=== PATIENT | male | born 1955 | race Caucasian/White ===

== ENCOUNTER 2018-03-12 09:28 | Outpatient (CLI) | payer BC ==
--- NOTE | 2018-03-12 10:41 | RAD ---
RIGHT FOOT THREE VIEWS: Date: 03-12-18 Comparison: None. History: Nonhealing wound on the plantar lateral aspect of the foot. FINDINGS: There is marked enthesophyte formation at the insertion of the Achilles tendon and origin of the plan tar aponeurosis. There are post-operative screws associated with the calcaneus posteriorly. There is midfoot degenerative change with joint space narrowing and dorsal osteophyte formation. There is no d isplaced fracture or evidence of dislocation seen. There is focal soft tissue swelling lateral and pl nicola to the fifth metatarsal phalangeal joint. No associated radiopaque foreign body or subcutaneous gas. There are degenerative changes involving the first metatarsal phalangeal joint as well as the first i nterphalangeal joint and the second and third distal interphalangeal joints. No acute fracture or dis location is seen. IMPRESSION: 1. Focal soft tissue swelling laterally. 2. Multilevel degenerative change. POS: [facility]
== END 2018-03-12 09:29 | disposition home or self-care (01) ==
LOC: SCSRAD 09:28
PROVIDERS: ATTEND Family Medicine
DX: M79.671 Pain in right foot (principal); M79.89 Other specified soft tissue disorders; M19.071 Primary osteoarthritis, right ankle and foot

== ENCOUNTER 2018-08-01 11:34 | Inpatient (IN) | payer BC ==
[2018-08-01 13:23] LABS: Hemoglobin 14.4 g/dL (14.0-18.0); Mean Corpuscular HGB CONC 33.5 g/dL (32.0-36.0); Mean Corpuscular Hemoglobin 30.6 pg (27.0-31.0); Mean Corpuscular Volume 91.3 fL (78.0-98.0); Mean Platelet Volume 8.4 fL (7.4-10.4); Platelet Count 166 thou/uL (130-400); RBC Distribution Width 12.2 % (11.5-14.5); White Blood Cell (WBC) Count 21.7 thou/uL (4.8-10.8)
[2018-08-01 13:42] LABS: Band 10 % (5-11); Lymphocytes 3 % (21-51); MDiff Complete? YES; Monocytes 3 % (0-10); Neutrophil 84 % (42-75); Platelet Morphology Comment Appears Adequate
--- NOTE | 2018-08-01 13:59 | RAD ---
Right foot 3 views HISTORY: Right foot pain with infection. COMPARISON: 03/12/2018. FINDINGS: Lisfranc joint alignment is anatomic. Plantar arch is maintained. Osteophytosis throughout the foot. Metallic anchors at the Achilles insertion. Soft tissue swelling the fifth metatarsophalangeal joint, slightly more pronounced than on the prior exam. Small gas pocket within the lateral soft tissue swelling. On the AP view, a thin linear calcific density projects just lateral to the fifth metatarsal head. It is not apparent on the other views and may represent artifact. IMPRESSION: Soft tissue swelling with gas over the fifth metatarsophalangeal joint. No aggressive oss eous destruction.
[2018-08-01 14:16] LABS: ALT (SGPT) 26 U/L (8-55); AST (SGOT) 17 U/L (5-34); Albumin 4.1 g/dL (3.4-4.8); Alkaline Phosphatase 95 U/L (40-150); Anion Gap 15 mmol/L (10-20); BUN (Urea Nitrogen) 22 mg/dL (8.4-25.7); Bilirubin, Total 0.8 mg/dL (0.2-1.2); Calc. Creatinine Clearance 0 mL/min (70-130); Carbon Dioxide 21 mmol/L (23-31); Chloride 103 mmol/L (98-107); Estimated GFR-MDRD 59; Globulin 2.6 g/dL (2.4-3.5); Glucose 176 mg/dL (80-115); Potassium 4.5 mmol/L (3.5-5.1); Protein, Total 6.7 g/dL (5.8-8.1); Sodium 134 mmol/L (136-145)
[2018-08-01] MEDS ORDERED: Piperacillin/Tazobactam 4.5 GM VIAL ONE (14:34)
[2018-08-01] MEDS ORDERED: Acetaminophen 325 MG TAB ONE ×2 (16:43→16:44)
[2018-08-01] MEDS ORDERED: metFORMIN 500 MG TAB PO SCH (17:00)
[2018-08-01] MEDS ORDERED: Ondansetron PF 4 MG/2 ML Vial IVP PRN (17:10)
[2018-08-01] MEDS ORDERED: Ondansetron ODT 4 MG TAB SL PRN (17:10)
[2018-08-01] MEDS ORDERED: Morphine 2 MG/ML SYRINGE SLOW IVP PRN (17:10)
[2018-08-01] MEDS ORDERED: Sodium Chloride 0.9% 1,000 ML IV SCH (17:10)
[2018-08-01] MEDS ORDERED: Morphine 4 MG/ML VIAL SLOW IVP PRN (17:11)
[2018-08-01] MEDS ORDERED: Acetaminophen 325 MG TAB PO PRN (17:22)
[2018-08-01] MEDS ORDERED: Dextrose 5% in Water 1,000 ML IV PRN (17:22)
[2018-08-01] MEDS ORDERED: Dextrose 50% Abboject 50 ML SYRINGE SLOW IVP PRN (17:22)
[2018-08-01] MEDS ORDERED: Ondansetron ODT 4 MG TAB PO PRN (17:22)
[2018-08-01] MEDS ORDERED: Calcium Carbonate 500 MG ChewTAB PO PRN (17:22)
[2018-08-01 17:26] VITALS: BMI 36.2
[2018-08-01] MEDS: Piperacillin/Tazobactam 3.375 GM in Sodium Chloride 0.9% 100 ML IVPB SCH (20:12)
[2018-08-01] MEDS ORDERED: Piperacillin/Tazobactam 4.5 GM in Sodium Chloride 0.9% 100 ML IVPB SCH (21:00)
[2018-08-01] MEDS: Vancomycin HCl 1 GM in Premix Bag 1 BAG IVPB SCH (22:11)
--- NOTE | 2018-08-01 22:38 | HP ---
RESIDENT PHYSICIAN: Dr. Mono Burns. PRIMARY CARE PHYSICIAN: Rojelio Forrest MD. HISTORY OF PRESENT ILLNESS: The patient is a 62-year-old male with past medical historyof type 2 diabetes mellitus, chronic pain, hypertension, hyperlipidemia, and diabetic peripheral neuropathy, who presents from his outside provider's clinic for further evaluation regarding a diabetic foot wound. Per the patient and his approximately 3 months ago, they noticed a diabetic foot ulcer, which was being treated outpatient. He had 2 episodes previously of cellulitis over the span of 3 months for which he was treated with both Bactrim and Keflex in the outpatient setting. Additionally, he was given wound care supplies including an antimicrobial ointment for which there has been no resolution of this ulcer. Initially, he had x-rays done 3 months prior, which were negative for any evidence of osteomyelitis. The patient reports the last night he began becoming confused and spiked a fever for which he took Tylenol for. He presented to his primary care provider's clinic today and was noted to have a fever of 101 there at which point he was sent to [facility] for further evaluation. On presentation to the ER, he had a CBC and a CMP performed. [place] [address] with 84% neutrophils. His CMP was unremarkable except for an elevated glucose of 176 and sodium of 134. He had x- ray of the right foot, which showed some gas formation over the 5th MTP of the right foot in addition to some soft tissue swelling. PAST MEDICAL HISTORY: 1. Diabetes mellitus. 2. Chronic pain. 3. Peripheral neuropathy. 4. Hypertension. 5. Hyperlipidemia. PAST SURGICAL HISTORY: Bilateral hip replacements. SOCIAL HISTORY: The patient denies alcohol, tobacco, and drug use. FAMILY HISTORY: Noncontributory. REVIEW OF SYSTEMS: GENERAL: The patient reports fever and chills. HEENT: The patient denies sore throat, cough, congestion. CARDIOVASCULAR: The patient denies chest pain, palpitations, or worsening edema. RESPIRATORY: The patient denies chest pain, shortness of breath, cough. ABDOMEN: The patient denies nausea, vomiting, diarrhea, constipation, abdominal pain. NEUROLOGIC: The patient denies dizziness, weakness, lightheadedness. MUSCULOSKELETAL: The patient does report joint pain, which is chronic. EXTREMITIES: The patient reports new onset erythema and warmth of the right lower extremity and a 3 month history of a diabetic foot ulcer. PHYSICAL EXAMINATION: VITAL SIGNS: On arrival into the ED showed a blood pressure of 116/69, pulse rate of 63, respiratory rate of 16, and temperature of 99. The patient's temperature in the outside clinic was reported of 101.5. PERTINENT LABORATORY RESULTS: The patient had a white blood cell count of 21, 700. Lactic acid 1.2, 84% neutrophils and lactic acid 1.2. PHYSICAL EXAMINATION: GENERAL: The patient in no acute distress, sitting comfortably in bed. HEENT: Head is normocephalic, atraumatic. Trachea is midline. No JVD. Pupils are equal, round, reactive to light and accommodation. Extraocular muscles are intact. CARDIOVASCULAR: Heart is regular rate and rhythm. No murmurs, rubs or gallops. RESPIRATORY: Lungs are clear to auscultation bilaterally. No wheezing, rales, or rhonchi. ABDOMEN: Soft, nontender, nondistended. Bowel sounds normoactive x4 quadrants. EXTREMITIES: No clubbing, cyanosis, or edema. The right lower extremity is erythematous up to approximately 10 cm below the patella on the right side. Additionally, there is an approximately 1 cm diabetic foot ulcer present over the 5th MTP joint without any evidence of fluctuance or purulent drainage. Pulses are 2+ posterior tibial and dorsalis pedis bilateral. NEUROLOGIC: The patient has no focal deficits. ASSESSMENT/PLAN: 1. Sepsis secondary to cellulitis. We will admit to medical floor for inpatient IV antibiotic therapy. Currently, we have an ESR, CRP, and procalcitonin pending. The patient will be started on broad-spectrum antibiotics including vancomycin and Zosyn. Given the foot x-ray showed gas formation over the 5th metatarsophalangeal. We will order an MRI with and without contrast of the right foot to rule out osteomyelitis. 2. Diabetic foot wound. See number one. Additionally, we will consult Wound Care for additional management. 3. Hypertension. Continue home medications. 4. Hyperlipidemia. Continue home medications. 5. Diabetes mellitus. The patient will be placed on a mild sliding scale insulin and restarted on his home metformin 1000 b.i.d. and Accu-Cheks before break fast and at bedtime. 6. Code status is full code. 7. Deep venous thrombosis, Lovenox. 8. Gastrointestinal prophylaxis, Tums p.r.n. DISPOSITION: The patient is currently stable. He will be admitted for inpatient IV antibiotics and we will workup osteomyelitis. Currently, MRI, ESR, CRP are still pending. Roel Burns MD Attending Note: Patient seen and examined along side resident. Labs, vitals, and imaging reviewed. Examine repeated by myself and agree with documentation above. Will admit patient for severe diabetic foot wound complicated by cellulitis and sepsis. Cultures pending. Continue empiric antibiotics. Inflammatory markers pending. MRI as needed. Consult surg and wound care. Follow closely. Lavinia Job ID: [id number] MTDD
[2018-08-02] MEDS: Piperacillin/Tazobactam 3.375 GM in Sodium Chloride 0.9% 100 ML IVPB SCH ×4 (02:46→20:50)
[2018-08-02] MEDS: Vancomycin HCl 1 GM in Premix Bag 1 BAG IVPB SCH ×3 (06:06→23:22)
[2018-08-02] MEDS: HumaLOG 300 UNITS/3 ML VIAL SC PRN ×2 (06:10→17:18)
[2018-08-02 07:23] LABS: Hemoglobin 12.9 g/dL (14.0-18.0); Mean Corpuscular HGB CONC 33.7 g/dL (32.0-36.0); Mean Corpuscular Hemoglobin 31.2 pg (27.0-31.0); Mean Corpuscular Volume 92.4 fL (78.0-98.0); Red Blood Cell (RBC) Count 4.15 mill/uL (4.70-6.10); White Blood Cell (WBC) Count 9.3 thou/uL (4.8-10.8)
[2018-08-02 07:30] LABS: Anion Gap 10 mmol/L (10-20); BUN (Urea Nitrogen) 16 mg/dL (8.4-25.7); Calc. Creatinine Clearance 121 mL/min (70-130); Calcium 8.7 mg/dL (7.8-10.44); Carbon Dioxide 23 mmol/L (23-31); Chloride 107 mmol/L (98-107); Estimated GFR-MDRD 71; Glucose 134 mg/dL (80-115); Potassium 4.2 mmol/L (3.5-5.1); Sodium 136 mmol/L (136-145)
[2018-08-02] MEDS: Amlodipine 10 MG TAB PO SCH ×2 (08:14→20:50)
[2018-08-02] MEDS: Potassium Chloride 20 MEQ TAB PO SCH (08:15)
[2018-08-02] MEDS: Gabapentin 300 MG CAP PO SCH ×2 (08:15→20:50)
[2018-08-02] MEDS: Alogliptin 25 MG TAB PO SCH (08:15)
[2018-08-02] MEDS: DULoxetine 60 MG CAP PO SCH (08:15)
[2018-08-02] MEDS: Furosemide 40 MG TAB PO SCH (08:16)
[2018-08-02] MEDS: metFORMIN 500 MG TAB PO SCH ×2 (08:16→17:17)
[2018-08-02] MEDS: Doxazosin Mesylate 4 MG TAB PO SCH (08:16)
[2018-08-02] MEDS: Enoxaparin Sodium 40 MG/0.4 ML SYRINGE SC SCH (08:16)
[2018-08-02] MEDS: Aspirin 325 MG TAB PO SCH (08:16)
[2018-08-02] MEDS: Niacin 500 MG TAB PO SCH (08:17)
[2018-08-02 08:36] LABS: #Lymphocytes 0.8 thou/uL (1.20-3.40); #Monocytes 0.6 thou/uL (0.11-0.59); #Neutrophils 7.7 thou/uL (1.40-6.50); %Basophils 0.2 % (0.0-1.0); %Eosinophils 0.4 % (0.0-10.0); %Lymphocytes 9.1 % (21.0-51.0); %Monocytes 6.9 % (0.0-10.0); %Neutrophils 83.4 % (42.0-75.0); Band 12 % (5-11); Lymphocytes 13 % (21-51); MDiff Complete? YES; Monocytes 5 % (0-10); Neutrophil 69 % (42-75); Platelet Count 118 thou/uL (130-400); Platelet Morphology Comment Appears Decreased; RBC Distribution Width 12.1 % (11.5-14.5); Reactive Lymphocytes 1 % (0-10)
[2018-08-02] MEDS ORDERED: DAPAGLIFLOZIN PROPANEDIOL 10 MG PO SCH (09:00)
--- NOTE | 2018-08-02 10:51 | PDOC.FM ---
- Subjective Subjective: CHIVO overnight. Pt reports he has not had fever recurrence does report episodes of sweating though. Overall feels improved. - Objective Vital Signs & Weight: Vital Signs (12 hours) Temp Pulse Resp BP Pulse Ox 08/02/18 08:14 62 08/02/18 08:00 98.3 F 52 L 16 154/77 H 100 Weight Weight 117.934 kg I&O: 08/01/18 08/02/18 08/03/18 06:59 06:59 06:59 Intake Total 1999 600 Balance 1999 600 Result Diagrams: 08/02/18 05:58 08/02/18 05:58 Phys Exam - Physical Examination Constitutional: NAD HEENT: PERRLA, sclera anicteric Neck: no nodes, no JVD Respiratory: no wheezing, no rales, no rhonchi, clear to auscultation bilateral Cardiovascular: RRR, no significant murmur, no rub Gastrointestinal: soft, non-tender, no distention, positive bowel sounds Musculoskeletal: no edema, pulses present 5th mtp DM ulcer rt, erythema improved from yesterday Neurological: non-focal, moves all 4 limbs Lymphatic: no nodes Deviation from normal: erythema rle, improved Dx/Plan (1) Sepsis due to cellulitis Code(s): L03.90 - CELLULITIS, UNSPECIFIED; A41.9 - SEPSIS, UNSPECIFIED ORGANISM Status: Acute (2) Osteomyelitis Code(s): M86.9 - OSTEOMYELITIS, UNSPECIFIED Status: Acute (3) DMII (diabetes mellitus, type 2) Status: Acute (4) HTN (hypertension) Code(s): I10 - ESSENTIAL (PRIMARY) HYPERTENSION Status: Acute (5) HLD (hyperlipidemia) Code(s): E78.5 - HYPERLIPIDEMIA, UNSPECIFIED Status: Acute (6) Foot ulcer due to secondary DM Code(s): E13.621 - OTHER SPECIFIED DIABETES MELLITUS WITH FOOT ULCER; L97.509 - NON-PRESSURE CHRONIC ULCER OTH PRT UNSP FOOT W UNSP SEVERITY Status: Acute - Plan Plan: 1) Sepsis: - cont broad spectrum abx - concern for osteo given XR findings - will get MRI today - sepsis has resolved (afebrile, WBC improved) 2) Cellulitis: - cont abx - improved from yesterday 3) Osteo: presumed given XR findings, will get MRI to confirm - gen surg consult pending XR results and cont broad spectrum ABX 4) DMII: home meds - mild SSI - accuchecks ACHS 5) HTN: Home meds 6) HLD: home meds 7) Chronic pain: home meds Dispo: Pt stable, to undergo MRI today for further evaluation of foot. Concern for osteo. Will consult gen surg. Cont broad spectrum abx. Addendum - Attending - Attending Attestation Date/Time: 08/02/18 7129 I personally evaluated the patient and discussed the management with Dr. Burns. I agree with the History, Examination, Assessment and Plan documented above with any addition or exceptions noted below.
[2018-08-02 14:13] LABS: Vancomycin, Trough 12.5 ug/mL
[2018-08-02] MEDS ORDERED: Lorazepam 2 MG/ML VIAL SLOW IVP SCH (15:00)
--- NOTE | 2018-08-02 18:58 | MRI ---
MRI OF THE RIGHT FOREFOOT WITH AND WITHOUT CONTRAST: 08/02/18 INDICATION: Unhealing wound underlying the fifth metatarsophalangeal joint with history of diabetes. TECHNIQUE: Multiplanar and multisequence MR images were obtained of the right forefoot with and without contrast utilizing 20 mL of gadolinium. Comparisons are made with radiographs of the right foot dated 08/01/18 and an additional comparison rad iograph of the right foot dated 03/12/18. FINDINGS: There is a surface marker placed underlying the fifth metatarsophalangeal joinr corresponding to the reported plantar base wound. There is a nonenhancing, heterogeneous fluid collection underlying the s kin surface of the plantar wound measuring 2.8 x 1.5 cm suspicious for a subcutaneous abscess. There are some erosive changes involving the dorsal medial and dorsal plantar aspect of the fifth metatars al head with enhancement suspicious for changes of osteomyelitis. No maikel joint effusion is seen to suggest the presence of septic arthritis of the fifth digit MTP joint. No additional marrow signal ab normality is grossly evident. There is scattered midfoot and forefoot osteoarthritic change. Lisfranc ligament is intact. There is mild cellulitis of the fifth digit as well as the dorsal lateral aspe ct of the forefoot. IMPRESSION: 1. Large plantar based ulceration underlying the fifth digit metatarsophalangeal joint with a higuera spected subcutaneous abscess overlying the ulceration and underlying the fifth digit MTP joint. There is scalloped margins involving the dorsomedial and dorsal plantar aspect of the fifth metatarsal wi th associated enhancement suspicious for changes of osteomyelitis. 2. Cellulitis of the right foot. POS: [facility]
[2018-08-02 22:27] LABS: Vancomycin, Trough 16.2 ug/mL
[2018-08-03] MEDS: Piperacillin/Tazobactam 3.375 GM in Sodium Chloride 0.9% 100 ML IVPB SCH ×4 (03:53→20:54)
[2018-08-03] MEDS: Vancomycin HCl 1 GM in Premix Bag 1 BAG IVPB SCH ×3 (06:30→22:20)
[2018-08-03 07:03] LABS: #Eosinphils 0.1 thou/uL (0.0-0.7); #Lymphocytes 1.4 thou/uL (1.20-3.40); #Monocytes 0.6 thou/uL (0.11-0.59); #Neutrophils 4.1 thou/uL (1.40-6.50); %Basophils 0.1 % (0.0-1.0); %Eosinophils 1.3 % (0.0-10.0); %Lymphocytes 23.1 % (21.0-51.0); %Monocytes 9.8 % (0.0-10.0); %Neutrophils 65.7 % (42.0-75.0); Hemoglobin 12.7 g/dL (14.0-18.0); Mean Corpuscular HGB CONC 34.5 g/dL (32.0-36.0); Mean Corpuscular Hemoglobin 31.4 pg (27.0-31.0); Mean Corpuscular Volume 91.1 fL (78.0-98.0); Mean Platelet Volume 7.9 fL (7.4-10.4); Platelet Count 128 thou/uL (130-400); RBC Distribution Width 11.7 % (11.5-14.5); Red Blood Cell (RBC) Count 4.05 mill/uL (4.70-6.10); White Blood Cell (WBC) Count 6.2 thou/uL (4.8-10.8)
[2018-08-03 07:14] LABS: Anion Gap 11 mmol/L (10-20); BUN (Urea Nitrogen) 11 mg/dL (8.4-25.7); Calc. Creatinine Clearance 137 mL/min (70-130); Calcium 8.8 mg/dL (7.8-10.44); Carbon Dioxide 24 mmol/L (23-31); Chloride 106 mmol/L (98-107); Estimated GFR-MDRD 82; Glucose 147 mg/dL (80-115); Potassium 3.9 mmol/L (3.5-5.1); Sodium 137 mmol/L (136-145)
--- NOTE | 2018-08-03 07:28 | PDOC.FM ---
- Subjective Subjective: CHIVO overnight. Pt denies fever, chills. Erythema improving. MRI confirms osteo. Discussed with pt. - Objective Vital Signs & Weight: Vital Signs (12 hours) Temp Pulse Resp BP Pulse Ox 08/02/18 20:50 62 08/02/18 20:00 98.6 F 62 20 150/77 H 100 Weight Admit Weight 117.934 kg Weight 117.934 kg I&O: 08/02/18 08/03/18 08/04/18 06:59 06:59 06:59 Intake Total 1999 1000 Balance 1999 1000 Result Diagrams: 08/03/18 06:19 08/03/18 06:19 Phys Exam - Physical Examination Constitutional: NAD HEENT: PERRLA, sclera anicteric Neck: no nodes, no JVD Respiratory: no wheezing, no rales, no rhonchi, clear to auscultation bilateral Cardiovascular: RRR, no significant murmur Gastrointestinal: soft, non-tender, no distention, positive bowel sounds Musculoskeletal: no edema, pulses present Neurological: non-focal, moves all 4 limbs Psychiatric: normal affect Deviation from normal: erythema RLE improved from yesterday, DM foot ulcer Rt 5th MTP Dx/Plan (1) Osteomyelitis Code(s): M86.9 - OSTEOMYELITIS, UNSPECIFIED Status: Acute (2) Sepsis due to cellulitis Code(s): L03.90 - CELLULITIS, UNSPECIFIED; A41.9 - SEPSIS, UNSPECIFIED ORGANISM Status: Resolved (3) DMII (diabetes mellitus, type 2) Status: Acute (4) HTN (hypertension) Code(s): I10 - ESSENTIAL (PRIMARY) HYPERTENSION Status: Acute (5) HLD (hyperlipidemia) Code(s): E78.5 - HYPERLIPIDEMIA, UNSPECIFIED Status: Acute (6) Foot ulcer due to secondary DM Code(s): E13.621 - OTHER SPECIFIED DIABETES MELLITUS WITH FOOT ULCER; L97.509 - NON-PRESSURE CHRONIC ULCER OTH PRT UNSP FOOT W UNSP SEVERITY Status: Acute - Plan Plan: 1) Sepsis resolved 2) Cellulitis improving - cont abx - improved from yesterday 3) Osteo: positive MRI - will consult Podiatry vs Gen surg and ID for recommendations 4) DMII: home meds - mild SSI - accuchecks ACHS 5) HTN: Home meds 6) HLD: home meds 7) Chronic pain: home meds Dispo: Pt stable, MRI confirms osteo. Will consult ID and Gen Surg for recommendations. Addendum - Attending - Attending Attestation Date/Time: 08/03/18 [id number] I personally evaluated the patient and discussed the management with Dr. Burns. I agree with the History, Examination, Assessment and Plan documented above with any addition or exceptions noted below. Patient reports improvement in pain. However, his MRI did show what appears to be osteomyelitis. Will consult Podiatry and/or GenSurg for further recs, possible I/D or debridement. Continue IV abx and pain control for now.
[2018-08-03] MEDS: metFORMIN 500 MG TAB PO SCH ×2 (08:21→17:15)
[2018-08-03] MEDS: Aspirin 325 MG TAB PO SCH (08:21)
[2018-08-03] MEDS: Doxazosin Mesylate 4 MG TAB PO SCH (08:21)
[2018-08-03] MEDS: Alogliptin 25 MG TAB PO SCH (08:21)
[2018-08-03] MEDS: Furosemide 40 MG TAB PO SCH (08:21)
[2018-08-03] MEDS: Niacin 500 MG TAB PO SCH (08:21)
[2018-08-03] MEDS: Gabapentin 300 MG CAP PO SCH ×2 (08:21→20:54)
[2018-08-03] MEDS: DULoxetine 60 MG CAP PO SCH (08:21)
[2018-08-03] MEDS: Potassium Chloride 20 MEQ TAB PO SCH (08:21)
[2018-08-03] MEDS: Amlodipine 10 MG TAB PO SCH ×2 (08:22→20:54)
[2018-08-03] MEDS: Enoxaparin Sodium 40 MG/0.4 ML SYRINGE SC SCH (08:33)
[2018-08-03] MEDS: HumaLOG 300 UNITS/3 ML VIAL SC PRN ×2 (13:00→17:20)
[2018-08-04] MEDS: Piperacillin/Tazobactam 3.375 GM in Sodium Chloride 0.9% 100 ML IVPB SCH ×4 (03:32→20:56)
[2018-08-04 04:27] LABS: #Eosinphils 0.2 thou/uL (0.0-0.7); #Lymphocytes 1.7 thou/uL (1.20-3.40); #Monocytes 0.6 thou/uL (0.11-0.59); #Neutrophils 3.8 thou/uL (1.40-6.50); %Basophils 0.1 % (0.0-1.0); %Eosinophils 2.9 % (0.0-10.0); %Lymphocytes 27.3 % (21.0-51.0); %Monocytes 8.9 % (0.0-10.0); %Neutrophils 60.8 % (42.0-75.0); Hemoglobin 13.1 g/dL (14.0-18.0); Mean Corpuscular HGB CONC 34.1 g/dL (32.0-36.0); Mean Corpuscular Hemoglobin 31.1 pg (27.0-31.0); Mean Corpuscular Volume 91.1 fL (78.0-98.0); Mean Platelet Volume 8.1 fL (7.4-10.4); Platelet Count 153 thou/uL (130-400); RBC Distribution Width 11.7 % (11.5-14.5); Red Blood Cell (RBC) Count 4.22 mill/uL (4.70-6.10); White Blood Cell (WBC) Count 6.2 thou/uL (4.8-10.8)
[2018-08-04 04:49] LABS: Anion Gap 11 mmol/L (10-20); BUN (Urea Nitrogen) 11 mg/dL (8.4-25.7); Calc. Creatinine Clearance 149 mL/min (70-130); Calcium 9.3 mg/dL (7.8-10.44); Carbon Dioxide 27 mmol/L (23-31); Chloride 105 mmol/L (98-107); Estimated GFR-MDRD 90; Glucose 129 mg/dL (80-115); Potassium 3.9 mmol/L (3.5-5.1); Sodium 139 mmol/L (136-145)
[2018-08-04] MEDS: Vancomycin HCl 1 GM in Premix Bag 1 BAG IVPB SCH ×3 (06:50→23:09)
--- NOTE | 2018-08-04 07:44 | PDOC.FM ---
- Subjective Subjective: CHIVO overnight. Pt reports he feels great. Will attempt to reach provider for debridement. - Objective Vital Signs & Weight: Vital Signs (12 hours) Temp Pulse Resp BP Pulse Ox 08/04/18 07:18 98.0 F 56 L 18 149/76 H 99 08/04/18 04:00 98.2 F 51 L 18 134/63 97 08/03/18 20:54 59 L 08/03/18 20:00 98.0 F 59 L 18 132/66 100 Weight Admit Weight 117.934 kg Weight 117.934 kg I&O: 08/03/18 08/04/18 08/05/18 06:59 06:59 06:59 Intake Total 1000 Balance 1000 Result Diagrams: 08/04/18 03:53 08/04/18 03:53 Phys Exam - Physical Examination Constitutional: NAD HEENT: PERRLA, sclera anicteric Neck: no nodes, no JVD Respiratory: no wheezing, no rales, no rhonchi, clear to auscultation bilateral Cardiovascular: RRR, no significant murmur, no rub Gastrointestinal: soft, non-tender, no distention, positive bowel sounds Musculoskeletal: no edema, pulses present DM foot ulcer rt 5th MTP Neurological: non-focal, moves all 4 limbs Deviation from normal: mild erythema over inner aspect LE that is local, otherwise improved Dx/Plan (1) Osteomyelitis Code(s): M86.9 - OSTEOMYELITIS, UNSPECIFIED Status: Acute (2) Sepsis due to cellulitis Code(s): L03.90 - CELLULITIS, UNSPECIFIED; A41.9 - SEPSIS, UNSPECIFIED ORGANISM Status: Resolved (3) DMII (diabetes mellitus, type 2) Status: Acute (4) HTN (hypertension) Code(s): I10 - ESSENTIAL (PRIMARY) HYPERTENSION Status: Acute (5) HLD (hyperlipidemia) Code(s): E78.5 - HYPERLIPIDEMIA, UNSPECIFIED Status: Acute (6) Foot ulcer due to secondary DM Code(s): E13.621 - OTHER SPECIFIED DIABETES MELLITUS WITH FOOT ULCER; L97.509 - NON-PRESSURE CHRONIC ULCER OTH PRT UNSP FOOT W UNSP SEVERITY Status: Acute - Plan Plan: 1) Sepsis resolved 2) Cellulitis improving - cont abx - improved from yesterday 3) Osteo: positive MRI - will consult Podiatry vs Gen surg and ID for recommendations - pt will need debirdement and will need recs for abx duration 4) DMII: home meds - mild SSI - accuchecks ACHS 5) HTN: Home meds 6) HLD: home meds 7) Chronic pain: home meds Dispo: Pt stable, MRI confirms osteo. Will attempt to reach provider for debridement and culture of underlying abscess. ID recs for abx and duration of therapy. Addendum - Attending - Attending Attestation Date/Time: 08/04/18 4469 I personally evaluated the patient and discussed the management with Dr. Burns. I agree with the History, Examination, Assessment and Plan documented above with any addition or exceptions noted below. Need to get Podiatry/Gen Surg on board for I/D versus debridement of likely osteomyelitis. Continue abx therapy. Pain improved and patient denies complaints.
[2018-08-04] MEDS: Aspirin 325 MG TAB PO SCH (09:10)
[2018-08-04] MEDS: Doxazosin Mesylate 4 MG TAB PO SCH (09:10)
[2018-08-04] MEDS: Enoxaparin Sodium 40 MG/0.4 ML SYRINGE SC SCH (09:10)
[2018-08-04] MEDS: metFORMIN 500 MG TAB PO SCH ×2 (09:10→18:39)
[2018-08-04] MEDS: Niacin 500 MG TAB PO SCH (09:11)
[2018-08-04] MEDS: Gabapentin 300 MG CAP PO SCH ×2 (09:11→20:56)
[2018-08-04] MEDS: DULoxetine 60 MG CAP PO SCH (09:12)
[2018-08-04] MEDS: Potassium Chloride 20 MEQ TAB PO SCH (09:12)
[2018-08-04] MEDS: Alogliptin 25 MG TAB PO SCH (09:12)
[2018-08-04] MEDS: Furosemide 40 MG TAB PO SCH (09:13)
[2018-08-04] MEDS: Amlodipine 10 MG TAB PO SCH ×2 (09:16→20:56)
[2018-08-04] MEDS: HumaLOG 300 UNITS/3 ML VIAL SC PRN ×2 (12:21→17:28)
[2018-08-04 22:33] LABS: Vancomycin, Trough 17.9 ug/mL
[2018-08-05] MEDS: Piperacillin/Tazobactam 3.375 GM in Sodium Chloride 0.9% 100 ML IVPB SCH ×4 (03:04→21:07)
[2018-08-05] MEDS: Vancomycin HCl 1 GM in Premix Bag 1 BAG IVPB SCH ×3 (06:12→23:25)
[2018-08-05] MEDS: HumaLOG 300 UNITS/3 ML VIAL SC PRN (06:16)
[2018-08-05] MEDS: Aspirin 325 MG TAB PO SCH (08:14)
[2018-08-05] MEDS: metFORMIN 500 MG TAB PO SCH ×2 (08:14→16:14)
[2018-08-05] MEDS: Potassium Chloride 20 MEQ TAB PO SCH (08:15)
[2018-08-05] MEDS: DULoxetine 60 MG CAP PO SCH (08:18)
[2018-08-05] MEDS: Niacin 500 MG TAB PO SCH (08:19)
[2018-08-05] MEDS: Gabapentin 300 MG CAP PO SCH ×2 (08:19→21:07)
[2018-08-05] MEDS: Amlodipine 10 MG TAB PO SCH ×2 (08:19→21:07)
[2018-08-05] MEDS: Alogliptin 25 MG TAB PO SCH (08:19)
[2018-08-05] MEDS: Furosemide 40 MG TAB PO SCH (08:19)
[2018-08-05] MEDS: Doxazosin Mesylate 4 MG TAB PO SCH (08:20)
--- NOTE | 2018-08-05 08:43 | PDOC.FM ---
- Subjective Subjective: CHIVO overnight. Pt reports he has been fever free and no chills. No pain in foot. Discussed plan for Gen surg consult today and continued abx. NPO for now. - Objective Vital Signs & Weight: Vital Signs (12 hours) Temp Pulse Resp BP BP Pulse Ox 08/05/18 08:19 157/75 H 08/05/18 08:00 98.1 F 51 L 18 157/75 H 99 08/04/18 20:56 59 L 136/68 Weight Admit Weight 117.934 kg Weight 117.934 kg I&O: 08/04/18 08/05/18 08/06/18 06:59 06:59 06:59 Intake Total 900 Balance 900 Result Diagrams: 08/04/18 03:53 08/04/18 03:53 Phys Exam - Physical Examination Constitutional: NAD HEENT: PERRLA, sclera anicteric Neck: no nodes, no JVD Respiratory: no wheezing, no rales, no rhonchi, clear to auscultation bilateral Cardiovascular: RRR, no significant murmur, no rub Gastrointestinal: soft, non-tender, no distention, positive bowel sounds Musculoskeletal: no edema, pulses present Rt 5th MTP ulcer, erythema improved RLE Neurological: non-focal, moves all 4 limbs Psychiatric: normal affect Skin: cap refill <2 seconds Deviation from normal: venous stasisi changes b/l LE Dx/Plan (1) Osteomyelitis Code(s): M86.9 - OSTEOMYELITIS, UNSPECIFIED Status: Acute (2) Sepsis due to cellulitis Code(s): L03.90 - CELLULITIS, UNSPECIFIED; A41.9 - SEPSIS, UNSPECIFIED ORGANISM Status: Resolved (3) DMII (diabetes mellitus, type 2) Status: Chronic (4) HTN (hypertension) Code(s): I10 - ESSENTIAL (PRIMARY) HYPERTENSION Status: Chronic (5) HLD (hyperlipidemia) Code(s): E78.5 - HYPERLIPIDEMIA, UNSPECIFIED Status: Chronic (6) Foot ulcer due to secondary DM Code(s): E13.621 - OTHER SPECIFIED DIABETES MELLITUS WITH FOOT ULCER; L97.509 - NON-PRESSURE CHRONIC ULCER OTH PRT UNSP FOOT W UNSP SEVERITY Status: Acute - Plan Plan: 1) Sepsis resolved 2) Cellulitis improving - cont abx - improved - Gen surg consult placed for foot ulcer and osteo 3) Osteo: - positive MRI - spoke with Dr Montague this am, will evaluate pt. - Cont abx for now 4) DMII: -home meds - mild SSI - accuchecks ACHS - Add low dose lantus QAM for better glycemic control 5) HTN: Home meds 6) HLD: home meds 7) Chronic pain: home meds Dispo: Pt stable, MRI confirms osteo. Spoke with Gen Surg this am, will await there recommendations and continue broad spectrum abx for now. Addendum - Attending - Attending Attestation Date/Time: 08/05/18 5030 I personally evaluated the patient and discussed the management with Dr. Burns. I agree with the History, Examination, Assessment and Plan documented above with any addition or exceptions noted below.
[2018-08-05] MEDS: Insulin Glargine 5 UNITS in Pre-Filled Syringe 1 EACH SC SCH (10:34)
[2018-08-05] MEDS ORDERED: Piperacillin/Tazobactam 3.375 GM VIAL ONE (15:29)
--- NOTE | 2018-08-06 01:43 | CON ---
DATE OF CONSULTATION: CHIEF COMPLAINT: Right foot osteomyelitis. HISTORY OF PRESENT ILLNESS: The patient is a very pleasant 62-year-old obese white male. He has a history of type 2 diabetes for the past 10 years. He has diabetic neuropathy associated with this. He tells me that about 3 months ago he believes he stepped on something while he was outside. He developed some cellulitis and/or infection involving his right foot for which he saw his primary care physician. He was placed on 2 separate courses of oral antibiotics. This seemed to have lead to some improvement. He notes that over the past 3 months that the area has healed with callus formation, but eventually it opened back up and drained again. He notes that last week (5 days ago) that he developed a fever to 101 with confusion. He went to the emergency room at [facility]. He was evaluated in the emergency room and noted to have a significant leukocytosis with a white blood cell count of 21.7. He had plain film x-rays of his foot that revealed some suggestion of some air within the soft tissue of the foot. He was admitted to the hospital and placed on IV antibiotics. He has been receiving Zosyn and vancomycin. An MRI of his foot was obtained on August 02. This revealed changes potentially consistent with osteomyelitis of the tip of the 5th metatarsal. I am consulted at this time for options regarding continued treatment of this. The patient notes specifically that he has never had any discomfort from this. He has also continued to ambulate in a normal fashion since he has had this injury. PAST MEDICAL HISTORY: Hypertension, diabetes, diabetic neuropathy. PAST SURGICAL HISTORY: Bilateral hip replacements, right foot heel spur. MEDICATIONS: 1. Amlodipine. 2. Farxiga. 3. Doxazosin. 4. Cymbalta. 5. Furosemide. 6. Gabapentin. 7. Metformin. 8. Niacin. 9. Januvia. ALLERGIES: NO KNOWN DRUG ALLERGIES. PRIMARY CARE PHYSICIAN: Dr. Forrest. PERSONAL AND SOCIAL HISTORY: He is with 2 children. He lives in [place]. 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 He does not smoke nor does he drink alcohol. REVIEW OF SYSTEMS: Otherwise unremarkable. FAMILY HISTORY: Noncontributory. PHYSICAL EXAMINATION: VITAL SIGNS: He has been afebrile since his admission here. His maximum temperature is 98.6, pulse is 61 and regular, blood pressure is 157/75. His height is 5 feet 11 inches, weight is 260 pounds with a BMI of 36. GENERAL: He is a well-developed, well-nourished, very pleasant and cooperative white male, resting in bed, in no acute distress. He is alert and oriented x3. HEAD, EYES, EARS, NOSE, AND THROAT: Unremarkable. NECK: Supple without mass or tenderness. LUNGS: Clear to auscultation throughout. CARDIAC: Regular rate and rhythm without murmur. ABDOMEN: Obese and protuberant, but soft and nontender. EXTREMITIES: He has easily palpable femoral pulses. On his right foot, he has easily palpable posterior tibial and dorsalis pedis pulses. He has changes of chronic venous insufficiency bilaterally with hyperpigmentation about up to the level of the knee. On the plantar lateral aspect of his right foot is a pigmented callus measuring about 1.5 x 1 cm. There is no tenderness, fluctuance, or open wound at this site. LABORATORY DATA: Labs, as mentioned his white blood cell count was elevated at admission, but dropped down to normal by the following day. His hemoglobin is stable at 13. His blood sugars have varied from 140-230 while he has been here in the hospital. He has normal kidney function. His liver function tests were within normal limits. He does not have a hemoglobin A1c level during this hospitalization. PROCEDURE: I debrided the callus on the plantar aspect of the foot. This was sharply debrided exposing an underlying pocket. This is clearly the cavity that the callus has been healing over to repromote drainage. I cannot find a communication between this pocket and the underlying bone. There is no foul smelling, no purulence. The wound was packed with gauze and a dry gauze dressing was placed. ASSESSMENT: The patient who did present with fever and leukocytosis and MRI did show some degree of osteomyelitis, however, there is no evidence of communication of the wound with the bone. In this setting, I would probably defer surgical treatment of this and recommend consideration of a prolonged course of IV antibiotics. For this reason, I will consult Dr. Kirk to make recommendations. Additionally, wound care team will be consulted to continue with dressing changes on this area and physical therapy will be consulted for recommendations regarding offloading of this segment of his foot while he is getting around. Ideally, he would not bear weight on this part of his foot until the area is completely healed. If this became an open wound with exposed bone, then he would clearly need amputation, but this is not the case yet. Job ID: [id number]
[2018-08-06] MEDS: Piperacillin/Tazobactam 3.375 GM in Sodium Chloride 0.9% 100 ML IVPB SCH ×4 (02:43→19:59)
[2018-08-06] MEDS: Vancomycin HCl 1 GM in Premix Bag 1 BAG IVPB SCH ×3 (06:31→22:31)
[2018-08-06 06:43] LABS: #Eosinphils 0.2 thou/uL (0.0-0.7); #Lymphocytes 1.6 thou/uL (1.20-3.40); #Monocytes 0.7 thou/uL (0.11-0.59); #Neutrophils 4.9 thou/uL (1.40-6.50); %Basophils 0.6 % (0.0-1.0); %Eosinophils 2.4 % (0.0-10.0); %Lymphocytes 21.4 % (21.0-51.0); %Neutrophils 66.5 % (42.0-75.0); Hemoglobin 13.1 g/dL (14.0-18.0); Mean Corpuscular HGB CONC 34.8 g/dL (32.0-36.0); Mean Corpuscular Hemoglobin 31.6 pg (27.0-31.0); Mean Corpuscular Volume 90.8 fL (78.0-98.0); Mean Platelet Volume 7.8 fL (7.4-10.4); Platelet Count 172 thou/uL (130-400); RBC Distribution Width 11.7 % (11.5-14.5); Red Blood Cell (RBC) Count 4.14 mill/uL (4.70-6.10); White Blood Cell (WBC) Count 7.4 thou/uL (4.8-10.8)
[2018-08-06 06:45] LABS: Hemoglobin A1c 7.5 % (4.0-6.0)
[2018-08-06 07:01] LABS: Anion Gap 12 mmol/L (10-20); BUN (Urea Nitrogen) 11 mg/dL (8.4-25.7); Calc. Creatinine Clearance 147 mL/min (70-130); Calcium 9.1 mg/dL (7.8-10.44); Carbon Dioxide 23 mmol/L (23-31); Chloride 107 mmol/L (98-107); Estimated GFR-MDRD 89; Glucose 148 mg/dL (80-115); Potassium 3.8 mmol/L (3.5-5.1); Sodium 138 mmol/L (136-145)
[2018-08-06] MEDS: Alogliptin 25 MG TAB PO SCH (08:14)
[2018-08-06] MEDS: Potassium Chloride 20 MEQ TAB PO SCH (08:14)
[2018-08-06] MEDS: metFORMIN 500 MG TAB PO SCH ×2 (08:14→17:53)
[2018-08-06] MEDS: Aspirin 325 MG TAB PO SCH (08:14)
[2018-08-06] MEDS: Gabapentin 300 MG CAP PO SCH ×2 (08:15→19:57)
[2018-08-06] MEDS: Furosemide 40 MG TAB PO SCH (08:15)
[2018-08-06] MEDS: Niacin 500 MG TAB PO SCH (08:15)
[2018-08-06] MEDS: Enoxaparin Sodium 40 MG/0.4 ML SYRINGE SC SCH (08:15)
[2018-08-06] MEDS: Amlodipine 10 MG TAB PO SCH ×2 (08:15→19:58)
[2018-08-06] MEDS: DULoxetine 60 MG CAP PO SCH (08:15)
[2018-08-06] MEDS: Insulin Glargine 5 UNITS in Pre-Filled Syringe 1 EACH SC SCH (08:16)
[2018-08-06] MEDS: Doxazosin Mesylate 4 MG TAB PO SCH (08:16)
--- NOTE | 2018-08-06 09:27 | PDOC.FM ---
- Subjective Subjective: CHIVO overnight. Pt had debridement of ulcer yesterday. Wound care will cont to see and we are awating ID recommendations. Pt stable and ready for DC pending ID recs. - Objective MAR Reviewed: Yes Vital Signs & Weight: Vital Signs (12 hours) Temp Pulse Resp BP BP Pulse Ox 08/06/18 08:15 51 L 176/79 H 08/06/18 07:30 98.3 F 51 L 16 176/79 H 99 Weight Admit Weight 117.934 kg Weight 117.934 kg I&O: 08/05/18 08/06/18 08/07/18 06:59 06:59 06:59 Intake Total 900 3559 Balance 900 3559 Result Diagrams: 08/06/18 05:58 08/06/18 05:58 Phys Exam - Physical Examination Constitutional: NAD HEENT: PERRLA, sclera anicteric Neck: no nodes, no JVD Respiratory: no wheezing, no rales, no rhonchi, clear to auscultation bilateral Cardiovascular: RRR, no significant murmur, no rub Gastrointestinal: soft, non-tender, no distention, positive bowel sounds Musculoskeletal: no edema, pulses present Ulcer rt 5th MTP, wound dressing in place Neurological: non-focal, normal sensation, moves all 4 limbs Lymphatic: no nodes Skin: cap refill <2 seconds Deviation from normal: venous stasis dermatitis Dx/Plan (1) Osteomyelitis Code(s): M86.9 - OSTEOMYELITIS, UNSPECIFIED Status: Acute (2) Sepsis due to cellulitis Code(s): L03.90 - CELLULITIS, UNSPECIFIED; A41.9 - SEPSIS, UNSPECIFIED ORGANISM Status: Resolved (3) DMII (diabetes mellitus, type 2) Status: Chronic (4) HTN (hypertension) Code(s): I10 - ESSENTIAL (PRIMARY) HYPERTENSION Status: Chronic (5) HLD (hyperlipidemia) Code(s): E78.5 - HYPERLIPIDEMIA, UNSPECIFIED Status: Chronic (6) Foot ulcer due to secondary DM Code(s): E13.621 - OTHER SPECIFIED DIABETES MELLITUS WITH FOOT ULCER; L97.509 - NON-PRESSURE CHRONIC ULCER OTH PRT UNSP FOOT W UNSP SEVERITY Status: Acute - Plan Plan: 1) Sepsis resolved 2) Cellulitis improving - cont abx - improved - s/p debridement - await ID recs 3) Osteo: - positive MRI - abx and await ID recs 4) DMII: -home meds - mild SSI - accuchecks ACHS - Add low dose lantus QAM for better glycemic control - cont accuchecks - A1C 7.5 5) HTN: Home meds monitor 6) HLD: home meds 7) Chronic pain: home meds Dispo: Pt stable, MRI confirms osteo. Will await ID recs. Addendum - Attending - Attending Attestation Date/Time: 08/06/18 1202 I personally evaluated the patient and discussed the management with Dr. Burns. I agree with the History, Examination, Assessment and Plan documented above with any addition or exceptions noted below. Wound with healthy appearance compared with eschar/HK from yesterday. Await ID and dispo pending.
[2018-08-06] MEDS: HumaLOG 300 UNITS/3 ML VIAL SC PRN (12:30)
--- NOTE | 2018-08-06 21:29 | PRG ---
DATE OF SERVICE: 08/06/2018 SUBJECTIVE: Mr. Tavares has no complaints. His dressing is intact on his foot. After I saw him yesterday, I recommended against surgical intervention for his right foot ulcer and possible osteomyelitis at this time. I did consult Dr. Kirk and later notified him of this consult. Physical therapy was consulted in regard to assistance with weight-bearing avoidance. Wound Care team was consulted to help with wound management. The patient has no complaints at this time. On examination, remains afebrile with normal vital signs. Dressing is intact on his foot and was not taken down at this time following my debridement yesterday of the callus and the underlying tissue. ASSESSMENT: The patient with right foot ulcer and possible osteomyelitis of part of the right foot. PLAN: Antibiotic treatment per Dr. Kirk, which is pending; ongoing wound care; and weight bearing avoidance. Job ID: [id number]
--- NOTE | 2018-08-07 01:21 | CON ---
DATE OF CONSULTATION: 08/06/2018 REASON FOR CONSULTATION: Right 5th toe osteomyelitis. HISTORY OF PRESENT ILLNESS: A 62-year-old who has history of type 2 diabetes, neuropathy, hypertension, and a chronic ulcer at the bottom of the right fifth MPJ skin site, which failed outpatient therapy for the past 3 months. He has had 2 prior episodes of cellulitis in the right leg, which were treated with Bactrim and Keflex. The patient on admission had an MRI, which showed evidence of a small abscess, which was debrided by Dr. Moy. The MRI showed bone involvement as well, but not enough to justify amputation. The foot x-ray did not show any bony destruction. Mr. Tavares is in good spirits at this time. Denies headaches, visual symptoms, sore throat, odynophagia, dysphagia. No cough, sputum production, chest pain, no abdominal pain or diarrhea. No genitourinary symptoms. No other joint symptoms. No neurological symptoms. PAST MEDICAL HISTORY: Type 2 diabetes, hypertension, neuropathy, hyperlipidemia. SURGICAL HISTORY: Hip replacement, right and left side. SOCIAL HISTORY: Never smoker. FAMILY HISTORY: Noncontributory. CURRENT MEDICATIONS: 1. Norvasc. 2. Aspirin. 3. Tums. 4. Dextrose. 5. Cardura. 6. Cymbalta. 7. Enoxaparin. 8. Glucagon. 9. Insulin. 10. Morphine. 11. Zosyn. 12. Vancomycin. PHYSICAL EXAMINATION: VITAL SIGNS: Normal temperature, blood pressure 150/60. SKIN: Shows the area of ulceration at the bottom aspect of the right fifth MPJ site with a little bit of erythema surrounding it. HEENT: Ocular movements conjugate. Oral cavity normal. NECK: Supple. LUNGS: Symmetric. Clear breath sounds. HEART: S1, S2. Regular rate. No S3 or S4. ABDOMEN: Soft not distended or tender. No ascites. No bladder distention. EXTREMITIES: Pulses are 1+ in dorsalis pedis. There is a little bit of erythema and stasis dermatitis in the right leg. NEUROLOGIC: Cognitive function is normal. LABORATORY DATA: White cell count is 21,000, down to 7.4, hemoglobin 13, platelets 172. Chemistry was normal, bilirubin 0.8, AST 17, ALT 26, alkaline phosphatase 95. C-reactive protein 6.70. IMAGING: Imaging studies discussed above. ASSESSMENT: Type 2 diabetes with neuropathy and chronic ulcer right fifth metatarsophalangeal with osteomyelitis status post limited debridement. I do not think we can have cultures from the site. If not, we will have to continue broad-spectrum coverage and we will arrange for outpatient treatment, PICC line placement and protracted IV antimicrobial therapy. This may result in a fistulous opening and may end up having to have surgical debridement of the MPJ. The vascular support seems to be adequate for healing. Job ID: [id number]
[2018-08-07] MEDS: Piperacillin/Tazobactam 3.375 GM in Sodium Chloride 0.9% 100 ML IVPB SCH ×4 (02:26→20:09)
[2018-08-07 06:58] LABS: #Eosinphils 0.2 thou/uL (0.0-0.7); #Lymphocytes 1.4 thou/uL (1.20-3.40); #Monocytes 0.7 thou/uL (0.11-0.59); #Neutrophils 6.2 thou/uL (1.40-6.50); %Basophils 0.5 % (0.0-1.0); %Eosinophils 1.8 % (0.0-10.0); %Lymphocytes 16.3 % (21.0-51.0); %Monocytes 8.1 % (0.0-10.0); %Neutrophils 73.3 % (42.0-75.0); Hemoglobin 13.4 g/dL (14.0-18.0); Mean Corpuscular Hemoglobin 30.1 pg (27.0-31.0); Mean Corpuscular Volume 91.1 fL (78.0-98.0); Mean Platelet Volume 7.2 fL (7.4-10.4); Platelet Count 192 thou/uL (130-400); RBC Distribution Width 11.8 % (11.5-14.5); Red Blood Cell (RBC) Count 4.44 mill/uL (4.70-6.10); White Blood Cell (WBC) Count 8.4 thou/uL (4.8-10.8)
[2018-08-07 07:07] LABS: Prothrombin Time 13.4 SEC (12.0-14.7)
[2018-08-07 07:23] LABS: Vancomycin, Trough 19.4 ug/mL
[2018-08-07] MEDS: metFORMIN 500 MG TAB PO SCH ×2 (07:49→16:24)
[2018-08-07] MEDS: Amlodipine 10 MG TAB PO SCH ×2 (07:49→20:08)
[2018-08-07] MEDS: Gabapentin 300 MG CAP PO SCH ×2 (07:49→20:09)
[2018-08-07] MEDS: Potassium Chloride 20 MEQ TAB PO SCH (07:49)
[2018-08-07] MEDS: DULoxetine 60 MG CAP PO SCH (07:49)
[2018-08-07] MEDS: Furosemide 40 MG TAB PO SCH (07:50)
[2018-08-07] MEDS: Niacin 500 MG TAB PO SCH (07:50)
[2018-08-07] MEDS: Doxazosin Mesylate 4 MG TAB PO SCH (07:50)
[2018-08-07] MEDS: Alogliptin 25 MG TAB PO SCH (07:50)
[2018-08-07] MEDS: Aspirin 325 MG TAB PO SCH ×2 (07:50→16:24)
[2018-08-07] MEDS: Enoxaparin Sodium 40 MG/0.4 ML SYRINGE SC SCH (07:50)
[2018-08-07] MEDS: Vancomycin HCl 1 GM in Premix Bag 1 BAG IVPB SCH ×3 (07:50→22:19)
[2018-08-07] MEDS: Insulin Glargine 5 UNITS in Pre-Filled Syringe 1 EACH SC SCH (07:52)
--- NOTE | 2018-08-07 08:53 | PDOC.FM ---
- Subjective Subjective: CHIVO overnight. Pt scheduled for PICC placement today and ID on board. 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 No complaints. - Objective MAR Reviewed: Yes Vital Signs & Weight: Vital Signs (12 hours) Temp Pulse Resp BP BP Pulse Ox 08/07/18 07:49 59 L 164/78 H 08/07/18 06:00 98.0 F 59 L 18 144/76 H 96 08/06/18 23:51 98.1 F 55 L 18 153/75 H 99 Weight Admit Weight 117.934 kg Weight 117.934 kg I&O: 08/06/18 08/07/18 08/08/18 06:59 06:59 06:59 Intake Total 359 1200 Balance 359 1200 Result Diagrams: 08/07/18 06:47 08/07/18 06:47 Phys Exam - Physical Examination Constitutional: NAD HEENT: PERRLA, sclera anicteric Neck: no nodes, no JVD Respiratory: no wheezing, no rales, no rhonchi, clear to auscultation bilateral Cardiovascular: RRR, no significant murmur, no rub Gastrointestinal: soft, non-tender, no distention, positive bowel sounds Musculoskeletal: pulses present left foot in dressing, pulse WNL, LLE cellulitis resolved Neurological: non-focal, moves all 4 limbs Psychiatric: normal affect Skin: normal turgor Deviation from normal: stasis dermatitis changes b/l LE Dx/Plan (1) Osteomyelitis Code(s): M86.9 - OSTEOMYELITIS, UNSPECIFIED Status: Acute (2) Sepsis due to cellulitis Code(s): L03.90 - CELLULITIS, UNSPECIFIED; A41.9 - SEPSIS, UNSPECIFIED ORGANISM Status: Resolved (3) DMII (diabetes mellitus, type 2) Status: Chronic (4) HTN (hypertension) Code(s): I10 - ESSENTIAL (PRIMARY) HYPERTENSION Status: Chronic (5) HLD (hyperlipidemia) Code(s): E78.5 - HYPERLIPIDEMIA, UNSPECIFIED Status: Chronic (6) Foot ulcer due to secondary DM Code(s): E13.621 - OTHER SPECIFIED DIABETES MELLITUS WITH FOOT ULCER; L97.509 - NON-PRESSURE CHRONIC ULCER OTH PRT UNSP FOOT W UNSP SEVERITY Status: Acute - Plan Plan: 1) Sepsis resolved 2) Cellulitis improving - resolved 3) Osteo: - positive MRI - abx and await ID recs - PICC placemetn today - If OP setup organized for continued abx, ok for DC later today 4) DMII: -fairly well controlled -consider OP titration of medication 5) HTN: Home meds monitor consider increase in home meds 6) HLD: home meds 7) Chronic pain: home meds Dispo: Pt stable, setup OP abx and PICC line today, hopefully dc tonight vs tomorrow. Addendum - Attending - Attending Attestation Date/Time: 08/07/18 0006 I personally evaluated the patient and discussed the management with Dr. Burns. I agree with the History, Examination, Assessment and Plan documented above with any addition or exceptions noted below. No cp/sob/n/v/f/c.
--- NOTE | 2018-08-07 13:27 | PRG ---
DATE OF SERVICE: 08/07/2018 Mr. Tavares is postprocedure day #2 from debridement of his right lateral foot ulcer. Wound Care Team placed the dressing yesterday and will instruct him and his in wound care today. I believe he is stable for discharge today. Outpatient antibiotics have been arranged per Dr. Kirk. I have written an order for outpatient wound care. I believe this is something that he and his can change, but he out to have wound care followup at least couple of times a week. I would like to see him back in a couple of weeks to ensure appropriate healing of this as well. He has crutches to walk on per physical therapy and he tells me he is stable with this. I again emphasized the importance of not weightbearing on this foot while it is healing. Job ID: [id number]
--- NOTE | 2018-08-07 15:13 | SPC ---
Ultrasound and Fluoroscopic guided right upper extremity PICC placement HISTORY: Heel infection. Patient needs long-term IV antibiotics. FINDINGS: Informed consent obtained prior to the procedure. An appropriate access site was determined with ultrasound guidance. The area was then meticulously pr epped and draped in usual sterile fashion. Skin overlying the right basilic vein anesthetized with 1% buffered lidocaine. With direct sonographi c guidance, vascular access is obtained via the right basilic vein and an 0.018in guidewire was advanced to the cavoatrial junction. Intravascular length is calculated at 41 cm and the PICC is cut accordingly. Needle is removed and replaced with a peel-away sheath. The PICC was advanced over the wire. Wire and peel-away sheath were removed. The tip of the catheter overlies the cavoatrial junction. The catheter was accessed and aspirated/flushed easily. Exposure data: 0 minutes of fluoroscopic time 302 mGy square centimeter FINDINGS: Technically successful placement of a 41 centimeter single lumen 5 [place] right upper extremity PICC line. IMPRESSION: Successful ultrasound guided placement of a right upper extremity PICC.
[2018-08-07] MEDS: HumaLOG 300 UNITS/3 ML VIAL SC PRN (17:19)
[2018-08-08] MEDS: Piperacillin/Tazobactam 3.375 GM in Sodium Chloride 0.9% 100 ML IVPB SCH ×2 (02:37→08:18)
[2018-08-08 05:56] LABS: #Basophils 0.1 thou/uL (0.0-0.2); #Eosinphils 0.2 thou/uL (0.0-0.7); #Lymphocytes 1.4 thou/uL (1.20-3.40); #Monocytes 0.7 thou/uL (0.11-0.59); %Basophils 0.6 % (0.0-1.0); %Eosinophils 2.5 % (0.0-10.0); %Lymphocytes 16.6 % (21.0-51.0); %Monocytes 8.8 % (0.0-10.0); %Neutrophils 71.6 % (42.0-75.0); Hemoglobin 13.1 g/dL (14.0-18.0); Mean Corpuscular HGB CONC 33.4 g/dL (32.0-36.0); Mean Corpuscular Hemoglobin 30.3 pg (27.0-31.0); Mean Corpuscular Volume 90.5 fL (78.0-98.0); Mean Platelet Volume 7.2 fL (7.4-10.4); Platelet Count 210 thou/uL (130-400); RBC Distribution Width 11.8 % (11.5-14.5); Red Blood Cell (RBC) Count 4.34 mill/uL (4.70-6.10); White Blood Cell (WBC) Count 8.4 thou/uL (4.8-10.8)
[2018-08-08 06:13] LABS: Anion Gap 11 mmol/L (10-20); BUN (Urea Nitrogen) 10 mg/dL (8.4-25.7); Calc. Creatinine Clearance 134 mL/min (70-130); Calcium 9.3 mg/dL (7.8-10.44); Carbon Dioxide 26 mmol/L (23-31); Chloride 107 mmol/L (98-107); Estimated GFR-MDRD 80; Glucose 128 mg/dL (80-115); Potassium 3.8 mmol/L (3.5-5.1); Sodium 140 mmol/L (136-145)
[2018-08-08] MEDS: Vancomycin HCl 1 GM in Premix Bag 1 BAG IVPB SCH (06:38)
[2018-08-08] MEDS: Doxazosin Mesylate 4 MG TAB PO SCH (07:56)
[2018-08-08] MEDS: Aspirin 325 MG TAB PO SCH (07:56)
[2018-08-08] MEDS: Niacin 500 MG TAB PO SCH (07:56)
[2018-08-08] MEDS: DULoxetine 60 MG CAP PO SCH (07:57)
[2018-08-08] MEDS: metFORMIN 500 MG TAB PO SCH (07:57)
[2018-08-08] MEDS: Furosemide 40 MG TAB PO SCH (07:57)
[2018-08-08] MEDS: Alogliptin 25 MG TAB PO SCH (07:57)
[2018-08-08] MEDS: Gabapentin 300 MG CAP PO SCH (07:58)
[2018-08-08] MEDS: Potassium Chloride 20 MEQ TAB PO SCH (07:58)
[2018-08-08] MEDS: Amlodipine 10 MG TAB PO SCH (07:58)
[2018-08-08] MEDS: Enoxaparin Sodium 40 MG/0.4 ML SYRINGE SC SCH (07:59)
[2018-08-08] MEDS ORDERED: Lisinopril 2.5 MG TAB PO SCH (09:00)
[2018-08-08] MEDS: Insulin Glargine 5 UNITS in Pre-Filled Syringe 1 EACH SC SCH (09:22)
[2018-08-08 10:13] VITALS: BP 143/79; TEMP 98
--- NOTE | 2018-08-08 10:36 | PDOC.FM ---
- Subjective Subjective: CHIVO overnight. Pt remains stable. Pt has AM appt with ID for OP antibiotic therapy. Stable for DC. - Objective Vital Signs & Weight: Vital Signs (12 hours) Temp Pulse Resp BP BP BP Pulse Ox 08/08/18 10:11 98 F 62 20 143/79 H 99 08/08/18 07:58 54 L 153/66 H 08/08/18 07:54 99 08/08/18 07:42 98.1 F 54 L 18 153/66 H 99 08/08/18 04:00 98.3 F 55 L 16 119/67 08/08/18 00:00 98.5 F 71 20 137/69 Weight Admit Weight 117.934 kg Weight 117.934 kg I&O: 08/07/18 08/08/18 08/09/18 06:59 06:59 06:59 Intake Total 1200 1800 Balance 1200 1800 Result Diagrams: 08/08/18 05:40 08/08/18 05:40 Phys Exam - Physical Examination Constitutional: NAD HEENT: PERRLA, sclera anicteric Neck: no nodes, no JVD Respiratory: no wheezing, no rales, no rhonchi, clear to auscultation bilateral Cardiovascular: RRR, no significant murmur, no rub Gastrointestinal: soft, non-tender, no distention, positive bowel sounds Musculoskeletal: no edema, pulses present Neurological: non-focal, moves all 4 limbs Skin: no rash Dx/Plan (1) Osteomyelitis Code(s): M86.9 - OSTEOMYELITIS, UNSPECIFIED Status: Acute (2) DMII (diabetes mellitus, type 2) Status: Chronic (3) HTN (hypertension) Code(s): I10 - ESSENTIAL (PRIMARY) HYPERTENSION Status: Chronic (4) HLD (hyperlipidemia) Code(s): E78.5 - HYPERLIPIDEMIA, UNSPECIFIED Status: Chronic (5) Foot ulcer due to secondary DM Code(s): E13.621 - OTHER SPECIFIED DIABETES MELLITUS WITH FOOT ULCER; L97.509 - NON-PRESSURE CHRONIC ULCER OTH PRT UNSP FOOT W UNSP SEVERITY Status: Acute - Plan Plan: 1) Sepsis resolved 2) Cellulitis - resolved 3) Osteo: - usp abx OP, s/p PICC placement - DC today 4) DMII: -fairly well controlled -consider OP titration of medication 5) HTN: added low dose FRANCO f/u OP 6) HLD: home meds 7) Chronic pain: home meds Dispo: DC to home with OP abx and f/u with wound care and ID. Addendum - Attending - Attending Attestation Date/Time: 08/08/18 1673 I personally evaluated the patient and discussed the management with Dr. Burns. I agree with the History, Examination, Assessment and Plan documented above with any addition or exceptions noted below.
--- NOTE | 2018-08-09 05:07 | PQF ---
[facility] Clinical Specialist Crystal Reports Winform Viewer TYRONE ROCK III, MICHAEL W MD [id number] [facility] [id number] CLINICAL DOCUMENTATION CLARIFICATION FORM: POST DISCHARGE Addendum to original discharge summary date: ____ Late entry note date: __ DATE: 08/09/18 ATTN: Dev Ly Please exercise your independent, professional judgment in responding to the clarification form. Clinical indicators are provided on the bottom of this form for your review Could you please further identify the type and depth of debridement done on for this patient? Please check appropriate box(s): [ x ] Excisional Debridement: [ x ] Excised [ ] Cut away [ ] Other: Depth / layer: (deepest layer of debridement): [ ] Skin[ x ] SubQ Tissue [ ] Fascia [ ] Muscle [ ] Tendon [ ] Bone Appearance of wound: (e.g., down to fresh bleeding tissue, etc.)__ down to viable tissue Margins: (please specify): / ___2__ x ___1__ x __1 cm___ Instruments used: [ x ] Scissors [ ] Scalpel [ ] Curette [ ] Soft tissue clipper [ ] Other: [ ] Non-excisional Debridement: (Removal by flushing, brushing, chemical, or washing) Depth / layer: (deepest layer of debridement): [ ] Skin[ ] Subcutaneous [ ] Fascia [ ] Muscle [ ] Tendon [ ] Bone [ ] Incision and Drainage only (No Debridement): Depth:[ ] Skin [ ] Subcutaneous [ ] Fascia [ ] Muscle [ ] Tendon [ ] Bone [ ] Escharectomy [ ] Other procedure diagnosis please specify [ ] Unable to determine For continuity of documentation, please document condition throughout progress notes and discharge summary. Thank You. CLINICAL INDICATORS Consult 08/[address] Moy- Extremities: On the plantar aspect of his right foot is a pigmented callus measuring about 1.5 x 1 cm. Consult 08/[address] Moy- Assessment: presents with fever and leukocytosis and MRI did show some degree of osteomyelitis Consult 08/[address] Moy-I debrided the callus on the plantar aspect of the foot. This was sharply debrided exposing an underlying pocket. This is clearly the cavity that the callus has been healing over with intermittent drainage. RISK FACTORS Diabetes Mellitus- H and P pg.1 08/01 pg.1 Hypertension-H and P pg.1 08/01 pg.1 Obesity- Consult 08/[address] Moy Osteomyelitis- H and P pg.1 08/01 pg.3 Sepsis due to Cellulitis- H and P pg.1 08/01 pg.2 Hyperlipidemia- H and P pg.1 08/01 pg.1 Diabetic foot wound- H and P pg.1 08/01 pg.3 TREATMENTS: IV Fluids- MAR Debridement of his right lateral foot ulcer- PN 08/07 Dr. Moy pg.1 Wound Care- PN 08/07 Dr. Moy pg.1 Lower Extremity MRI- 08/01 Foot X-ray- 08/01 Infectious Consult- 08/06 Dr. Kirk Piperacillin/ (Zosyn) 4.5gm IV- MAY 28 Vancomycin 1gm IV- MAY 28 (This form is maintained as a part of the permanent medical record) 2014 [employer]. All Rights Reserved [email or web address] [not provided] [email or web address]
== END 2018-08-08 10:35 | disposition home or self-care (01) | DRG 854 ==
LOC: ERS 11:34 → ERHOLD 13:54 → T4-B 17:15
PROVIDERS: ADMIT Student in an Organized Health Care Education/Training Program; ATTEND Student in an Organized Health Care Education/Training Program
PROC: 0JBQ0ZZ Excision of Right Foot Subcutaneous Tissue and Fascia, Open Approach (ICD-10-PCS; 2018-08-05)
PROC: 02HV33Z Insertion of Infusion Device into Superior Vena Cava, Percutaneous Approach (ICD-10-PCS; principal; 2018-08-07)
PROC: B548ZZA Ultrasonography of Superior Vena Cava, Guidance (ICD-10-PCS; 2018-08-07)
DX: A41.9 Sepsis, unspecified organism (principal); M86.171 Other acute osteomyelitis, right ankle and foot; E11.69 Type 2 diabetes mellitus with other specified complication; I10 Essential (primary) hypertension; E11.42 Type 2 diabetes mellitus with diabetic polyneuropathy; E78.5 Hyperlipidemia, unspecified; E11.621 Type 2 diabetes mellitus with foot ulcer; L97.509 Non-pressure chronic ulcer of other part of unspecified foot with unspecified severity; E66.9 Obesity, unspecified; Z79.899 Other long term (current) drug therapy; Z79.84 Long term (current) use of oral hypoglycemic drugs; Z68.36 Body mass index [BMI] 36.0-36.9, adult
CPT/HCPCS: 36415; 36416; 36569; 80048; 80053; 80202; 82565; 83036; 83605; 84145; 85025; 85610; 85652; 85730; 86140; 87040; 96365; 96367; C1751; J1650; J1825; J2060; J2543; J3370; J3490

== ENCOUNTER 2018-08-14 08:26 | Outpatient (CLI) | payer BC ==
[2018-08-14] MEDS ORDERED: Sodium Chloride 0.9% 15 ML NEB ONE (09:00)
--- NOTE | 2018-08-14 16:26 | HP ---
HISTORY OF PRESENT ILLNESS: Mr. Lele Tavares, JONATHAN, is a very pleasant 62-year-old gentleman, who presents to the [facility] for evaluation of an ulceration of the plantar surface of the right forefoot. The patient states that he may have stepped on something approximately 3 months ago. He stated that he was treated by Dr. Forrest for cellulitis with 2 different p.o. antibiotics. He states that although the wound improved it "callused over" and the callus came off intermittently. He states that he presented to Dr. Forrest with fever, and at this time was referred to the emergency department. The patient states that he was admitted and treated with IV antibiotics for right foot osteomyelitis. The patient states he is still receiving 2 different IV antibiotics as an outpatient. The patient states that his has been performing dressing changes of Promogran for the ulceration of the plantar surface of the right forefoot. The patient states he his receiving these dressing changes every 3 days. Allevyn and Kerlix are being utilized as secondary dressings. PAST MEDICAL HISTORY: 1. Diabetes mellitus. 2. Hypertension. PAST SURGICAL HISTORY: 1. Bilateral hip replacements. 2. Surgery for right foot heel spur in his 50s. MEDICATIONS: 1. Zestril. 2. Norvasc. 3. Gabapentin. 4. Metformin. 5. Niacin. 6. . 7. Cymbalta. 8. Lasix. 9. Doxazosin. 10. K-Dur. 11. Januvia. 12. Aspirin. 13. [place]-3. 14. Vitamin B12. 15. Vitamin D. ALLERGIES: NO KNOWN DIAGNOSED ALLERGIES. SOCIAL HISTORY: Social history is negative for tobacco use. The patient admits to the social consumption of alcohol in the past. He states that he has not consumed any alcohol in 20 years. FAMILY HISTORY: Family history is negative for diabetes mellitus or coronary artery disease. PHYSICAL EXAMINATION: VITAL SIGNS: Temperature 98.2, pulse 73, respirations 20, blood pressure 149/68. Accu-Chek 170. GENERAL: A 62-year-old gentleman, lying on table in examination room, in no acute distress. HEENT: Normocephalic and atraumatic. NECK: No nuchal rigidity. CHEST: Clear to auscultation. CV: Regular rate and rhythm. ABDOMEN: Soft. EXTREMITIES: An ulceration of the plantar surface of the right lateral forefoot is present, which measures approximately 0.3 x 0.4 cm. Granulation tissue is present within the wound margins. No purulent drainage is associated with the wound. No erythema of the skin surrounding the wound is present. No maceration of the skin of the periwound is noted. No significant edema of the right foot is present on exam today. NEURO: Grossly nonfocal. ASSESSMENT AND PLAN: 1. Ulceration of plantar surface of right lateral forefoot. Dressing changes of Promogran are to be continued every 3 days or alternatively on a daily basis after cleansing and irrigation. The patient's will continue to assist Mr. Tavares with his dressing changes. As stated above, the patient is receiving IV antibiotics as per Dr. Shekhar Kirk of Infectious Diseases for osteomyelitis of the right foot. I will see Mr. Tavares again in 1 week. The patient understands and is in agreement with the preceding treatment plan. In 2 weeks, the patient will be seen by the photoresist contact printer for fitting with diabetic shoes with inserts. 2. Diabetes mellitus. The patient's Accu-Chek in clinic today is 170. The patient has been told that for optimal wound healing, his blood glucoses should remain below 150. 3. Hypertension. Job ID: [id number]
== END 2018-08-14 08:27 | disposition home or self-care (01) ==
LOC: WCC 08:26
PROVIDERS: ATTEND Family Medicine
DX: E11.621 Type 2 diabetes mellitus with foot ulcer (principal); L97.519 Non-pressure chronic ulcer of other part of right foot with unspecified severity; I10 Essential (primary) hypertension
CPT/HCPCS: 36416; A4218

== ENCOUNTER 2018-08-21 09:57 | Outpatient (CLI) | payer BC ==
--- NOTE | 2018-08-21 11:36 | PRG ---
DATE OF SERVICE: 08/21/2018 HISTORY: Mr. Lele Tavares, III, is a very pleasant 62-year-old gentleman, who presents to the Wound Center for evaluation of an ulceration of the plantar surface of the right forefoot. The patient stated at the time of his initial presentation to the Wound Center that he may have stepped on something approximately 3 months previously. He stated that he was treated by Dr. Forrest for cellulitis with 2 different p.o. antibiotics. He stated that although the wound improved, it "calloused over" and the callus came off intermittently. He stated that he presented to Dr. Forrest with fever and at this time was referred to the emergency department. The patient stated that he was admitted and treated with IV antibiotics for right foot osteomyelitis. The patient is now receiving daptomycin and ertapenem as an outpatient. The patient has been receiving assistance with dressing changes from his . PHYSICAL EXAMINATION: VITAL SIGNS: Temperature 97.6, pulse 94, respirations 20, and blood pressure 141/80. Accu-Chek 152. EXTREMITIES: An ulceration of the plantar surface of the right lateral forefoot is present, which measures approximately 0.5 x 0.4 cm. Granulation tissue is present within the wound margins. Necrotic and nonviable tissue present within the wound margins was debrided with an excisional full-thickness debridement with the use of a curette. Callus undermining and desiccated tissue at the periphery of the wound were eliminated with the use of scissors. No purulent drainage is associated with the wound. No erythema of the skin surrounding the wound is present. No maceration of the skin of the periwound is noted. No significant edema of the right foot is present on exam today. Post debridement measurements were 0.6 x 0.6 cm. ASSESSMENT AND PLAN: 1. Ulceration of plantar surface of right lateral forefoot. Dressing changes of Promogran will be discontinued. Dressing changes of Medihoney will be initiated today. These dressing changes are to be performed every 3 days or alternatively on a daily basis after cleansing and irrigation with the assistance of the patient's , gauze, and Kerlix will be utilized as secondary dressings. As stated above, the patient is receiving daptomycin and ertapenem as per Dr. Kirk for osteomyelitis of the right foot. I will see Mr. Tavares again in 1 week. At this time, the patient will also be seen by the inspector shells for fitting with diabetic shoes with inserts. 2. Diabetes mellitus. The patient's Accu-Chek in clinic today is 152. The patient has been reminded that for optimal wound healing his blood glucoses should remain below 150. 3. Hypertension. Job ID: [id number]
[2018-08-21] MEDS ORDERED: Sodium Chloride 0.9% 15 ML NEB ONE (18:00)
== END 2018-08-21 09:58 | disposition home or self-care (01) ==
LOC: WCC 09:57
PROVIDERS: ATTEND Family Medicine
DX: E11.621 Type 2 diabetes mellitus with foot ulcer (principal); L97.519 Non-pressure chronic ulcer of other part of right foot with unspecified severity; I10 Essential (primary) hypertension
CPT/HCPCS: 11042; 36416; A4218

== ENCOUNTER 2018-08-28 09:13 | Outpatient (CLI) | payer BC ==
--- NOTE | 2018-08-28 09:54 | PRG ---
DATE OF SERVICE: 08/28/2018 HISTORY: Mr. Lele Tavares, III, is a very pleasant 62-year-old gentleman, who [facility] for evaluation of an ulceration of the plantar surface of the right forefoot. At the time of the patient's initial visit to the [facility] Center, the patient stated that he may have stepped on something approximately 3 months previously. He stated that he was treated by Dr. Forrest for cellulitis with 2 different p.o. antibiotics. He stated that, although, the wound improved, it "callused over" and the callus came off intermittently. He stated that he presented to Dr. Forrest with fever and at this time was referred to the emergency department. The patient stated that he was admitted and treated with IV antibiotics for right foot osteomyelitis. The patient is presently receiving daptomycin and ertapenem as an outpatient. The patient continues to receive assistance with dressing changes from his . PHYSICAL EXAMINATION: VITAL SIGNS: Temperature 98.3, pulse 86, respirations 18, blood pressure 145/66. Accu-Chek 134. EXTREMITIES: An ulceration of the plantar surface of the right lateral forefoot is present, which measures approximately 0.1 x 0.2 cm. Granulation tissue is present within the wound margins. Necrotic and nonviable tissue present within the wound margins was debrided with an excisional full-thickness debridement with the use of scissors. Undermining and desiccated tissue at the periphery of the wound were also eliminated with the use of scissors. No purulent drainage is associated with the wound. No erythema of the skin surrounding the wound is present. No maceration of the skin of the periwound is noted. No significant edema of the right foot is present on exam today. ASSESSMENT AND PLAN: 1. Ulceration of plantar surface of right lateral forefoot. Dressing changes of Medihoney will be continued every 3 days or alternatively on a daily basis after cleansing and irrigation with the assistance of the patient's . Gauze and Kerlix will be utilized as secondary dressings. As stated above, the patient is receiving daptomycin and ertapenem as per Dr. Kirk for osteomyelitis of the right foot. I will see Mr. Tavares again in 1 week. At this time, the patient will also be seen by the java software engineer for fitting with diabetic shoes with inserts. 2. Diabetes mellitus. The patient's Accu-Chek in clinic today is 134. The patient has been reminded that for optimal wound healing, his blood glucoses should remain below 150. 3. Hypertension. Job ID: [id number]
[2018-08-28] MEDS ORDERED: Sodium Chloride 0.9% 15 ML NEB ONE (15:00)
== END 2018-08-28 09:14 | disposition home or self-care (01) ==
LOC: WCC 09:13
PROVIDERS: ATTEND Family Medicine
DX: E11.621 Type 2 diabetes mellitus with foot ulcer (principal); L97.419 Non-pressure chronic ulcer of right heel and midfoot with unspecified severity; I10 Essential (primary) hypertension
CPT/HCPCS: 11042; 36416; A4218

== ENCOUNTER 2018-09-04 11:16 | Outpatient (CLI) | payer BC ==
--- NOTE | 2018-09-04 10:27 | PRG ---
DATE OF SERVICE: 09/04/2018 HISTORY: Mr. Lele Tavares III is a very pleasant 62-year-old gentleman, who presents to the [facility] for evaluation of an ulceration of the plantar surface of the right forefoot. At the time of the patient's initial visit to the [facility] Center, the patient stated that he may have stepped on something approximately 3 months previously. He stated that he was treated by Dr. Forrest for cellulitis with 2 different p.o. antibiotics. He stated that although the wound improved, it "calloused over" and the callus came off intermittently. He stated that he presented to Dr. Forrest with fever, and at this time, was referred to the emergency department. The patient stated that he was admitted and treated with IV antibiotics for right foot osteomyelitis. The patient is currently receiving daptomycin and ertapenem as an outpatient as per Dr. Kirk. The patient is still receiving assistance with dressing changes from his . PHYSICAL EXAMINATION: VITAL SIGNS: Temperature 97.6, pulse 65, respirations 20, blood pressure 149/65. Accu-Chek 132. EXTREMITIES: The ulceration of the plantar surface of the right lateral forefoot has healed completely. ASSESSMENT AND PLAN: 1. Ulceration of plantar surface of right lateral forefoot. As stated above, the ulceration has completely healed. Dressing changes will be discontinued. As stated above, the patient is receiving daptomycin and ertapenem as per Dr. Kirk for osteomyelitis of the right foot. I will see Mr. Tavares again on 09/18/2018. At this time, the patient will also be seen by the advanced registered nurse for fitting with diabetic shoes with inserts. 2. Diabetes mellitus. The patient's Accu-Chek in clinic today is 132. The patient has been reminded that for optimal wound healing, his blood glucoses should remain below 150. 3. Hypertension. Job ID: [id number]
[~2018-09-04 11:16] MED LIST: Sodium Chloride 0.9% 15 ML NEB ONE
== END 2018-09-04 11:17 | disposition home or self-care (01) ==
LOC: WCC 11:16
PROVIDERS: ATTEND Family Medicine
DX: E11.621 Type 2 diabetes mellitus with foot ulcer (principal); L97.419 Non-pressure chronic ulcer of right heel and midfoot with unspecified severity; I10 Essential (primary) hypertension
CPT/HCPCS: 36416; 97602; A4218

== ENCOUNTER 2018-09-18 09:00 | Outpatient (CLI) | payer BC ==
--- NOTE | 2018-09-18 09:51 | PRG ---
DATE OF SERVICE: 09/18/2018 HISTORY: Mr. Lele Tavares is a very pleasant 62-year-old gentleman, who presents to the [facility] for evaluation of an ulceration of the plantar surface of the right forefoot. At the time of the patient's initial visit to the [facility] Center, the patient stated that he may have stepped on something approximately 3 months previously. He stated that he was treated by Dr. Forrest for cellulitis with 2 different p.o. antibiotics. He stated that although the wound improved, it "calloused over" and the callus came off intermittently. He stated that he presented to Dr. Forrest with fever and at this time was referred to the emergency department. The patient stated that he was admitted and treated with IV antibiotics for right foot osteomyelitis. The patient has received daptomycin and ertapenem as an outpatient as per Dr. Kirk. PHYSICAL EXAMINATION: VITAL SIGNS: Temperature 97.9, pulse 56, respirations are 16, and blood pressure 131/60. Accu-Chek 173. EXTREMITIES: The ulceration of the plantar surface of the right lateral forefoot has healed completely and remains healed. ASSESSMENT AND PLAN: 1. Ulceration of plantar surface of right lateral forefoot. As stated above, the ulceration has healed completely and remains healed. Also as stated above, the patient has received daptomycin and ertapenem as per Dr. Kirk for osteomyelitis of the right foot. Mr. Tavares has been seen by the maintainer operator today for fitting with diabetic shoes with inserts. Mr. Tavares will be discharged from clinic today with followup on a p.r.n. basis. 2. Diabetes mellitus. The patient's Accu-Chek in clinic today is 173. 3. Hypertension. Job ID: [id number]
== END 2018-09-18 09:01 ==
LOC: WCC 09:00
PROVIDERS: ATTEND Family Medicine
DX: E11.621 Type 2 diabetes mellitus with foot ulcer (principal); L97.519 Non-pressure chronic ulcer of other part of right foot with unspecified severity; I10 Essential (primary) hypertension
CPT/HCPCS: 36416; 99212; G0463